=== PATIENT | male | born 1985 | race Caucasian/White ===

== ENCOUNTER 2016-04-07 16:39 | Emergency (ER) | payer OTHER ==
--- NOTE | 2016-04-07 17:43 | ED ORDER SUMMARY ---
..... Patient: JOSE MANUEL GUNTER OrderSheet [facility] VisitID: [id number] [address] [place] [address] 30y, M Registration Date/Time: 04/07/2016 ORDER SHEET Weight: 82.5 kg Allergies: No Known Drug Allergy GENERAL ORDERS: Rapid Influenza Screen (Nasal Pharyngeal) (clear) Urgent (17:14 04/07/2016 West per protocol) (Ack 17:23 LTapper) (17:45 MWinterer R.N.) MEDICATION ORDERS: Hydrocodone-APAP PO 5/325 mg (NOW, HIGH ALERT MEDICATION) (17:21 04/07/2016 Anival JOHANSEN) (Cancelled: Patient [id number] West) Zofran ODT PO 4 mg (NOW) (17:21 04/07/2016 Anival JOHANSEN) (17:32 West) - (Tamiflu 75 mg po) (17:55 04/07/2016 Anival JOHANSEN) (18:03 West) IV FLUIDS: ORDER SHEET NOTES: [Electronically signed by Carla Hernandez (18:04 04/07/2016)] [Electronically signed by Dorian Soriano DO (08:21 04/08/2016)] [Electronically locked/signed by Carla Hernandze (18:04 04/07/2016)]
--- NOTE | 2016-04-07 17:43 | ED ORDER SUMMARY ---
..... Patient: JOSE MANUEL GUNTER OrderSheet [facility] VisitID: [id number] [address] [place] [address] 30y, M Registration Date/Time: 04/07/2016 ORDER SHEET Weight: 82.5 kg Allergies: No Known Drug Allergy GENERAL ORDERS: Rapid Influenza Screen (Nasal Pharyngeal) (clear) Urgent (17:14 04/07/2016 West per protocol) (Ack 17:23 LTapper) (17:45 MWinterer R.N.) MEDICATION ORDERS: Hydrocodone-APAP PO 5/325 mg (NOW, HIGH ALERT MEDICATION) (17:21 04/07/2016 Anival JOHANSEN) (Cancelled: Patient [id number] [place]) Zofran ODT PO 4 mg (NOW) (17:21 04/07/2016 Anival JOHANSEN) (17:32 [place]) - (Tamiflu 75 mg po) (17:55 04/07/2016 Anival JOHANSEN) (18:03 [place]) IV FLUIDS: ORDER SHEET NOTES: [Electronically signed by Carla Hernandez (18:04 04/07/2016)] [Electronically signed by Dorian Soriano DO (08:21 04/08/2016)] [Electronically locked/signed by Carla Hernandez (18:04 04/07/2016)]
--- NOTE | 2016-04-07 17:43 | ED NURSING NOTES ---
Clinical Report - Nurses [facility] [address] [place] [address] 04/07/2016 16:43 Patient: JOSE MANUEL GUNTER TRIAGE Triage time 1650. Acuity: LEVEL 4. Chief Complaint: "FLU", FEVER, COUGH, SORE THROAT and BODY ACHES. Alert. No acute distress. --16:58 Carla Hernandez 16:56 04/07/16. BP: 146/73. HR: 81. RR: 16. O2 saturation: 99%. Temp: 99.6 F. Pain level now 8/10. --16:58 Carla Hernandez. Weight: 82.5 kg. Height/Length: 68 inches. BMI: 27.7. --16:56 Carla Hernandez. Medications None. --16:56 Carla Hernandez. Allergies No Known Drug Allergy. --16:57 Carla Hernandez. History Arrived by private vehicle. Historian: family. Accompanied by family. This started yesterday. Treatment HOUSE DIRECTOR: None. SOCIAL HX: Heavy tobacco smoker (cigarette)- 1 pack per day. Occasional alcohol use. --16:58 Carla Hernandez. Interventions ID band on patient. To treatment room. --16:58 Carla Hernandez. PHYSICAL ASSESSMENT Ambulatory to room. GENERAL / NEURO / PSYCH: Alert. Oriented X 4. Appears in no acute distress. HEENT: Pupils equal, round and reactive to light. Mucous membranes are pink. RESPIRATORY: Respirations not labored. Chest nontender. Breath sounds within normal limits. CVS: Normal sinus rhythm noted. Capillary refill less than 2 seconds. Pulses within normal limits. GI / : Abdomen soft and nontender and normal bowel sounds. SKIN: Skin intact. Skin is warm. Normal skin turgor. --16:58 Carla Hernandez. NURSING PROGRESS NOTES 17:32 04/07/2016 Zofran ODT (Ondansetron) PO 4 mg given. Allergies verified and confirmed 5 rights. --17:32 Carla Hernandez 17:42 04/07/16. ( deburr technician Dylon reported pt is influenza A positive. ED MD notified.). --17:42 Rita Ramirez R.N. 18:03 04/07/2016 Tamiflu PO 75 mg given. Allergies verified and confirmed 5 rights. --18:03 Carla Hernandez. DISPOSITION / DISCHARGE Condition at departure: improved and stable. No learning barriers present. Discharge instructions provided and reviewed with the patient. Reviewed medication(s). Patient verbalized understanding. Written instructions provided in Surinamese. The patient was discharged by the physician. He was discharged home and accompanied by pilot supervisor. He left the Emergency Department ambulatory and via private vehicle. Patient Safety Tech driving. --18:04 Caral Hernandez 18:03 04/07/16. BP: 147/66. HR: 87. RR: 16. O2 saturation: 97%. --18:04 Carla Hernandez Departure time: 1800. --18:04 Carla Hernandez. Locked/Released at 04/07/2016 18:04 by Carla Hernandez,
--- NOTE | 2016-04-07 17:43 | ED NURSING NOTES ---
Clinical Report - Nurses [facility] [address] [place] [address] 04/07/2016 16:43 Patient: JOSE MANUEL GUNTER TRIAGE Triage time 1650. Acuity: LEVEL 4. Chief Complaint: "FLU", FEVER, COUGH, SORE THROAT and BODY ACHES. Alert. No acute distress. --16:58 Carla Hernandez 16:56 04/07/16. BP: 146/73. HR: 81. RR: 16. O2 saturation: 99%. Temp: 99.6 F. Pain level now 8/10. --16:58 Carla Hernandez. Weight: 82.5 kg. Height/Length: 68 inches. BMI: 27.7. --16:56 Carla Hernandez. Medications None. --16:56 Carla Hernandez. Allergies No Known Drug Allergy. --16:57 Carla Hernandez. History Arrived by private vehicle. Historian: family. Accompanied by family. This started yesterday. Treatment MEDICAL INTERN: None. SOCIAL HX: Heavy tobacco smoker (cigarette)- 1 pack per day. Occasional alcohol use. --16:58 Carla Hernandez. Interventions ID band on patient. To treatment room. --16:58 Carla Hernandez. PHYSICAL ASSESSMENT Ambulatory to room. GENERAL / NEURO / PSYCH: Alert. Oriented X 4. Appears in no acute distress. HEENT: Pupils equal, round and reactive to light. Mucous membranes are pink. RESPIRATORY: Respirations not labored. Chest nontender. Breath sounds within normal limits. CVS: Normal sinus rhythm noted. Capillary refill less than 2 seconds. Pulses within normal limits. GI / : Abdomen soft and nontender and normal bowel sounds. SKIN: Skin intact. Skin is warm. Normal skin turgor. --16:58 Carla Hernandez. NURSING PROGRESS NOTES 17:32 04/07/2016 Zofran ODT (Ondansetron) PO 4 mg given. Allergies verified and confirmed 5 rights. --17:32 Carla Hernandez 17:42 04/07/16. ( aerospace physiological technician Dylon reported pt is influenza A positive. ED MD notified.). --17:42 Rita Ramirez R.N. 18:03 04/07/2016 Tamiflu PO 75 mg given. Allergies verified and confirmed 5 rights. --18:03 Carla Hernandez. DISPOSITION / DISCHARGE Condition at departure: improved and stable. No learning barriers present. Discharge instructions provided and reviewed with the patient. Reviewed medication(s). Patient verbalized understanding. Written instructions provided in Niuean. The patient was discharged by the physician. He was discharged home and accompanied by line painting machine operator. He left the Emergency Department ambulatory and via private vehicle. J2Ee Consultant driving. --18:04 Carla Hernandez 18:03 04/07/16. BP: 147/66. HR: 87. RR: 16. O2 saturation: 97%. --18:04 Carla Hernandez Departure time: 1800. --18:04 Carla Hernandez. Locked/Released at 04/07/2016 18:04 by Carla Hernandez,
--- NOTE | 2016-04-07 17:43 | ED CLINICAL REPORT ---
Clinical Report - Physicians/Mid Levels [facility] [address] [place] [address] 04/07/2016 16:43 Patient: JOSE MANUEL GUNTER Time Seen: 16:47. Arrived- By private vehicle. Historian- patient. HISTORY OF PRESENT ILLNESS Chief Complaint: FEVER, MUSCLE ACHES, NASAL CONGESTION, RUNNY NOSE, SORE THROAT, BACK PAIN and HEADACHE. At its maximum, severity described as moderate. When seen in the E.D., severity described as moderate. Modifying factors- worsened by movement and walking. Relieved by rest. This started yesterday and is still present. It was gradual in onset and has been waxing/waning. The patient has had fatigue and muscle aches involving the back. Similar symptoms previously: Recent medical care: Not recently seen/assessed. REVIEW OF SYSTEMS The patient has had sinus drainage, nasal congestion and fever. He has had a sore throat, cough and mild headache. The headache has been similar to previous ones. No difficulty breathing, abdominal pain, nausea, vomiting or diarrhea. No black stools, bloody stools, difficulty with urination, skin rash or calf pain. He has had moderate lower back pain. No difficulty with ambulation. All systems otherwise negative, except as recorded above. PAST HISTORY Negative. See nurses notes. Problems: no known problems. Medications: None. Allergies: No Known Drug Allergy. SOCIAL HISTORY Smoker- current status unknown. Occasional alcohol use. ADDITIONAL NOTES The nursing notes have been reviewed. PHYSICAL EXAM Vital Signs: 04/07/2016 16:56 BP: 146/73. HR: 81. RR: 16. O2 saturation: 99%. Temp: 99.6 F. Appearance: Alert. Patient in moderate distress. Eyes: Eyes normal inspection. No scleral icterus or pale conjunctivae. ENT: No pharyngeal erythema or tonsillar exudate. The mucous membranes are not dry. Neck: Normal inspection. Neck supple. No meningeal signs. CVS: Normal heart rate and rhythm. Heart sounds normal. Pulses normal. Respiratory: No respiratory distress. Breath sounds normal. Abdomen: No visible injury. Soft and nontender. No mass. Back: Normal inspection. Moderate soft-tissue tenderness in the right mid lumbar area. No CVA tenderness or vertebral point tenderness. Skin: Skin warm and dry. Normal skin color. No rash. Normal skin turgor. Extremities: Extremities exhibit normal ROM. No calf tenderness. No lower extremity edema. Neuro: Oriented X 3. No motor deficit. LABS, X-RAYS, AND EKG Laboratory Tests: Rapid Influenza Screen: (ANGIE: 04/07/2016 16:50) ( [id number] 04/07/2016 17:42) Final results SPECIMEN DESCRIPTION: CLEAR Test Result Flag Units (Reference) RAPID INFLUENZA SCREEN CALLED TO: Emily NEVAREZ -- DATE: 04/07/16 INFLUENZA A: POSITIVE SCREEN FOR INFLUENZA A INFLUENZA B: NEGATIVE SCREEN FOR INFLUENZA B RAPID INFLUENZA "A" POSITIVE. . Pulse Oximetry: 04/07/2016 16:56 O2 saturation: 99%. (FIO2 - room air). Interpretation: normal. PROGRESS AND PROCEDURES Course of Care: Tamiflu 75mg PO given. Hydrocodone/APAP 5 mg PO given. Zofran 4 mg ODT PO given. Patient is stable. Physical exam findings are improved. Symptoms much better. Patient/family counseled. Disposition: Discharged. Condition: stable and improved. CLINICAL IMPRESSION Influenza type A with upper respiratory infection and pharyngitis. INSTRUCTIONS Rest. Do not work for three days. Drink plenty of fluids. Warnings: Further evaluation is necessary in order to recheck abnormal lab, obtain test results and conduct further tests. It is very important to follow up with a physician. SEDATIVE MEDICATION: You were given sedative medication during your visit. Do not drive or operate dangerous machinery. CONTROLLED SUBSTANCE WARNINGS. GENERAL WARNINGS: Return or contact your physician immediately if your condition worsens or changes unexpectedly, if not improving as expected, or if other problems arise. Prescription Medications: Hydrocodone/APAP 5mg / 325mg: take 1-2 orally every 8 hours as needed for pain. Dispense ten (10). No refill. Tamiflu 75 mg: take 1 capsule orally every 12 hours for 5 days. Dispense ten (10). No refills. Substitution is permissible. OTC Medications: Acetaminophen (available over the counter): take according to label instructions. Motrin (available over the counter): take according to label instructions. Follow-up: Follow up with your doctor in about three days. (Electronically signed by Dorian Soriano DO 04/08/2016 8:21)
--- NOTE | 2016-04-08 08:21 | ED DISCHARGE INSTRUCTIONS ---
Patient: JOSE MANUEL GUNTER General Instructions Located Within [facility] VisitID: [id number] [place] [address] 30y, M Registration Date/Time: 04/07/2016 Influenza type A with upper respiratory infection and pharyngitis. INSTRUCTIONS Rest. Do not work for three days. Drink plenty of fluids. Warnings: Further evaluation is necessary in order to recheck abnormal lab, obtain test results and conduct further tests. It is very important to follow up with a physician. SEDATIVE MEDICATION: You were given sedative medication during your visit. Do not drive or operate dangerous machinery. CONTROLLED SUBSTANCE WARNINGS. GENERAL WARNINGS: Return or contact your physician immediately if your condition worsens or changes unexpectedly, if not improving as expected, or if other problems arise. Prescription Medications: Hydrocodone/APAP 5mg / 325mg: take 1-2 orally every 8 hours as needed for pain. Dispense ten (10). No refill. Tamiflu 75 mg: take 1 capsule orally every 12 hours for 5 days. Dispense ten (10). No refills. Substitution is permissible. OTC Medications: Acetaminophen (available over the counter): take according to label instructions. Motrin (available over the counter): take according to label instructions. Follow-up: Follow up with your doctor in about three days. ADDITIONAL INFORMATION Influenza (Adult) Influenza, also called the flu, is a viral illness that affects the air passages of the lungs. It differs from the common cold. It is highly contagious. It may be spread through the air by coughing and sneezing or by direct contact (touching the sick person and then touching your own eyes, nose or mouth). Illness starts 1-3 days after exposure and lasts for 1-2 weeks. Antibiotics are usually not needed unless a complication appears (ear or sinus infection or pneumonia). Symptoms may be mild or severe and can include extreme tiredness (wanting to stay in bed all day), chills, fevers, muscle aching, soreness with eye movement, headache, and a dry, hacking cough. Home Care: Avoid exposure to cigarette smoke (yours or others). Tylenol or ibuprofen (Advil) will help fever, muscle aching, and headache. To avoid risk of liver injury, aspirin should not be used in children and teenagers under 18 with this illness. Nausea and loss of appetite are common. A light diet is recommended. Avoid dehydration by drinking 6-8 glasses of fluids per day (water, sport drinks like Gatorade, soft drinks without caffeine, juices, tea, soup, etc.). Extra fluids will also help loosen secretions in the nose and lungs. [id number]-[id number] cold medicines will not shorten the duration of the illness but may be helpful for the following symptoms: cough (Robitussin DM); sore throat (Chloraseptic lozenges or spray); nasal and sinus congestion (Actifed or Sudafed). [NOTE: Do not use decongestants if you have high blood pressure.] Stay home until your fever has been gone for at least 24 hours (without the use of fever-reducing medications such as ibuprofen). Follow Up with your doctor or as directed by our staff if you are not improving over the next week. Note: If you are age 65 or older, or if you have chronic asthma or COPD, we recommend a pneumococcal vaccinationevery five years. All adults shouldreceive a yearly influenza vaccination every . Ask your doctor about this. Get Prompt Medical Attention if any of the following occur: Cough with lots of colored sputum (mucus) or blood in your sputum Chest pain, shortness of breath, wheezing, or difficulty breathing Severe headache, face, neck or ear pain New rash Fever of 100.4F (38C) oral or higher, not better with fever medication Confusion, behavior change or seizure Severe weakness or dizziness Hydrocodone Bitartrate, Acetaminophen Oral tablet What is this medicine? ACETAMINOPHEN; HYDROCODONE (a set a ADRIAN jaswinder fen; lainey droe KOE done) is a pain reliever. It is used to treat mild to moderate pain. How should I use this medicine? Take this medicine by mouth. Swallow it with a full glass of water. Follow the directions on the prescription label. If the medicine upsets your stomach, take the medicine with food or milk. Do not take more than you are told to take. Talk to your ecommerce merchandising manager regarding the use of this medicine in children. This medicine is not approved for use in children. What side effects may I notice from receiving this medicine? Side effects that you should report to your doctor or health managed care manager as soon as possible: allergic reactions like skin rash, itching or hives, swelling of the face, lips, or tongue breathing problems confusion feeling faint or lightheaded, falls stomach pain yellowing of the eyes or skin Side effects that usually do not require medical attention (report to your doctor or health managed care manager if they continue or are bothersome): nausea, vomiting stomach upset What may interact with this medicine? alcohol antihistamines isoniazid medicines for depression, anxiety, or psychotic disturbances medicines for sleep muscle relaxants naltrexone narcotic medicines (opiates) for pain phenobarbital ritonavir tramadol What if I miss a dose? If you miss a dose, take it as soon as you can. If it is almost time for your next dose, take only that dose. Do not take double or extra doses. Where should I keep my medicine? Keep out of the reach of children. This medicine can be abused. Keep your medicine in a safe place to protect it from theft. Do not share this medicine with anyone. Selling or giving away this medicine is dangerous and against the law. Store at room temperature between 15 and 30 degrees C (59 and 86 degrees F). Protect from light. Keep container tightly closed. Throw away any unused medicine after the expiration date. Discard unused medicine and used packaging carefully. Pets and children can be harmed if they find used or lost packages. What should I tell my health care provider before I take this medicine? They need to know if you have any of these conditions: brain tumor Crohn's disease, inflammatory bowel disease, or ulcerative colitis drink more than 3 alcohol-containing drinks per day drug abuse or addiction head injury heart or circulation problems kidney disease or problems going to the bathroom liver disease lung disease, asthma, or breathing problems an unusual or allergic reaction to acetaminophen, hydrocodone, other opioid analgesics, other medicines, foods, dyes, or preservatives or trying to get breast-feeding What should I watch for while using this medicine? Tell your doctor or health managed care manager if your pain does not go away, if it gets worse, or if you have new or a different type of pain. You may develop tolerance to the medicine. Tolerance means that you will need a higher dose of the medicine for pain relief. Tolerance is normal and is expected if you take the medicine for a long time. Do not suddenly stop taking your medicine because you may develop a severe reaction. Your body becomes used to the medicine. This does NOT mean you are addicted. Addiction is a behavior related to getting and using a drug for a non-medical reason. If you have pain, you have a medical reason to take pain medicine. Your doctor will tell you how much medicine to take. If your doctor wants you to stop the medicine, the dose will be slowly lowered over time to avoid any side effects. You may get drowsy or dizzy when you first start taking the medicine or change doses. Do not drive, use machinery, or do anything that may be dangerous until you know how the medicine affects you. Stand or sit up slowly. There are different types of narcotic medicines (opiates) for pain. If you take more than one type at the same time, you may have more side effects. Give your health care provider a list of all medicines you use. Your doctor will tell you how much medicine to take. Do not take more medicine than directed. Call emergency for help if you have problems breathing. The medicine will cause constipation. Try to have a bowel movement at least every 2 to 3 days. If you do not have a bowel movement for 3 days, call your doctor or health managed care manager. Too much acetaminophen can be very dangerous. Do not take Tylenol (acetaminophen) or medicines that contain acetaminophen with this medicine. Many non-prescription medicines contain acetaminophen. Always read the labels carefully. Oseltamivir Phosphate Oral capsule What is this medicine? OSELTAMIVIR (os el WILBURN i vir) is an antiviral medicine. It is used to prevent and to treat some kinds of influenza or the flu. It will not work for colds or other viral infections. How should I use this medicine? Take this medicine by mouth with a glass of water. Follow the directions on the prescription label. Start this medicine at the first sign of flu symptoms. You can take it with or without food. If it upsets your stomach, take it with food. Take your medicine at regular intervals. Do not take your medicine more often than directed. Take all of your medicine as directed even if you think you are better. Do not skip doses or stop your medicine early. Talk to your ecommerce merchandising manager regarding the use of this medicine in children. While this drug may be prescribed for children as young as 14 days for selected conditions, precautions do apply. What side effects may I notice from receiving this medicine? Side effects that you should report to your doctor or health managed care manager as soon as possible: allergic reactions like skin rash, itching or hives, swelling of the face, lips, or tongue anxiety, confusion, unusual behavior breathing problems hallucination, loss of contact with reality redness, blistering, peeling or loosening of the skin, including inside the mouth seizures Side effects that usually do not require medical attention (report to your doctor or health managed care manager if they continue or are bothersome): cough diarrhea dizziness headache nausea, vomiting stomach pain What may interact with this medicine? Interactions are not expected. What if I miss a dose? If you miss a dose, take it as soon as you remember. If it is almost time for your next dose (within 2 hours), take only that dose. Do not take double or extra doses. Where should I keep my medicine? Keep out of the reach of children. Store at room temperature between 15 and 30 degrees C (59 and 86 degrees F). Throw away any unused medicine after the expiration date. What should I tell my health care provider before I take this medicine? They need to know if you have any of the following conditions: heart disease immune system problems kidney disease liver disease lung disease an unusual or allergic reaction to oseltamivir, other medicines, foods, dyes, or preservatives or trying to get breast-feeding What should I watch for while using this medicine? Visit your doctor or health managed care manager for regular check ups. Tell your doctor if your symptoms do not start to get better or if they get worse. If you have the flu, you may be at an increased risk of developing seizures, confusion, or abnormal behavior. This occurs early in the illness, and more frequently in children and teens. These events are not common, but may result in accidental injury to the patient. Families and caregivers of patients should watch for signs of unusual behavior and contact a doctor or health managed care manager right away if the patient shows signs of unusual behavior. This medicine is not a substitute for the flu shot. Talk to your doctor each year about an annual flu shot. Acetaminophen Oral tablet What is this medicine? ACETAMINOPHEN (a set a ADRIAN jaswinder fen) is a pain reliever. It is used to treat mild pain and fever. How should I use this medicine? Take this medicine by mouth with a glass of water. Follow the directions on the package or prescription label. Take your medicine at regular intervals. Do not take your medicine more often than directed. Talk to your ecommerce merchandising manager regarding the use of this medicine in children. While this drug may be prescribed for children as young as 6 years of age for selected conditions, precautions do apply. What side effects may I notice from receiving this medicine? Side effects that you should report to your doctor or health managed care manager as soon as possible: allergic reactions like skin rash, itching or hives, swelling of the face, lips, or tongue breathing problems fever or sore throat redness, blistering, peeling or loosening of the skin, including inside the mouth trouble passing urine or change in the amount of urine unusual bleeding or bruising unusually weak or tired yellowing of the eyes or skin Side effects that usually do not require medical attention (report to your doctor or health managed care manager if they continue or are bothersome): headache nausea, stomach upset What may interact with this medicine? alcohol imatinib isoniazid other medicines with acetaminophen What if I miss a dose? If you miss a dose, take it as soon as you can. If it is almost time for your next dose, take only that dose. Do not take double or extra doses. Where should I keep my medicine? Keep out of reach of children. Store at room temperature between 20 and 25 degrees C (68 and 77 degrees F). Protect from moisture and heat. Throw away any unused medicine after the expiration date. What should I tell my health care provider before I take this medicine? They need to know if you have any of these conditions: if you frequently drink alcohol containing drinks liver disease an unusual or allergic reaction to acetaminophen, other medicines, foods, dyes or preservatives or trying to get breast-feeding What should I watch for while using this medicine? Tell your doctor or health managed care manager if the pain lasts more than 10 days (5 days for children), if it gets worse, or if there is a new or different kind of pain. Also, check with your doctor if a fever lasts for more than 3 days. Do not take other medicines that contain acetaminophen with this medicine. Always read labels carefully. If you have questions, ask your doctor or pharmacist. If you take too much acetaminophen get medical help right away. Too much acetaminophen can be very dangerous and cause liver damage. Even if you do not have symptoms, it is important to get help right away. Ibuprofen Oral tablet What is this medicine? IBUPROFEN (eye BYOO proe fen) is a non-steroidal anti-inflammatory drug (NSAID). It is used for dental pain, fever, headaches or migraines, osteoarthritis, rheumatoid arthritis, or painful monthly periods. It can also relieve minor aches and pains caused by a cold, flu, or sore throat. How should I use this medicine? Take this medicine by mouth with a glass of water. Follow the directions on the prescription label. Take this medicine with food if your stomach gets upset. Try to not lie down for at least 10 minutes after you take the medicine. Take your medicine at regular intervals. Do not take your medicine more often than directed. A special MedGuide will be given to you by the pharmacist with each prescription and refill. Be sure to read this information carefully each time. Talk to your ecommerce merchandising manager regarding the use of this medicine in children. Special care may be needed. What side effects may I notice from receiving this medicine? Side effects that you should report to your doctor or health managed care manager as soon as possible: allergic reactions like skin rash, itching or hives, swelling of the face, lips, or tongue black or bloody stools, blood in the urine or in vomit breathing problems changes in vision chest pain general ill feeling or flu-like symptoms nausea or vomiting redness, blistering, peeling or loosening of the skin, including inside the mouth slurred speech or weakness on one side of the body stomach pain unexplained weight gain or swelling unusually weak or tired yellowing of eyes or skin Side effects that usually do not require medical attention (report to your doctor or health managed care manager if they continue or are bothersome): constipation or diarrhea dizziness gas or heartburn stomach upset What may interact with this medicine? Do not take this medicine with any of the following medications: cidofovir ketorolac methotrexate pemetrexed This medicine may also interact with the following medications: alcohol aspirin diuretics lithium other drugs for inflammation like prednisone warfarin What if I miss a dose? If you miss a dose, take it as soon as you can. If it is almost time for your next dose, take only that dose. Do not take double or extra doses. Where should I keep my medicine? Keep out of the reach of children. Store at room temperature between 15 and 30 degrees C (59 and 86 degrees F). Keep container tightly closed. Throw away any unused medicine after the expiration date. What should I tell my health care provider before I take this medicine? They need to know if you have any of these conditions: asthma cigarette smoker drink more than 3 alcohol containing drinks a day heart disease or circulation problems such as heart failure or leg edema (fluid retention) high blood pressure kidney disease liver disease stomach bleeding or ulcers an unusual or allergic reaction to ibuprofen, aspirin, other NSAIDS, other medicines, foods, dyes, or preservatives or trying to get breast-feeding What should I watch for while using this medicine? Tell your doctor or healthcare professional if your symptoms do not start to get better or if they get worse. This medicine does not prevent heart attack or stroke. In fact, this medicine may increase the chance of a heart attack or stroke. The chance may increase with longer use of this medicine and in people who have heart disease. If you take aspirin to prevent heart attack or stroke, talk with your doctor or health managed care manager. Do not take other medicines that contain aspirin, ibuprofen, or naproxen with this medicine. Side effects such as stomach upset, nausea, or ulcers may be more likely to occur. Many medicines available without a prescription should not be taken with this medicine. This medicine can cause ulcers and bleeding in the stomach and intestines at any time during treatment. Ulcers and bleeding can happen without warning symptoms and can cause . To reduce your risk, do not smoke cigarettes or drink alcohol while you are taking this medicine. You may get drowsy or dizzy. Do not drive, use machinery, or do anything that needs mental alertness until you know how this medicine affects you. Do not stand or sit up quickly, especially if you are an older patient. This reduces the risk of dizzy or fainting spells. This medicine can cause you to bleed more easily. Try to avoid damage to your teeth and gums when you brush or floss your teeth. You have been given the following additional information: Influenza (Adult) Hydrocodone Bitartrate, Acetaminophen Oral tablet Oseltamivir Phosphate Oral capsule Acetaminophen Oral tablet Ibuprofen Oral tablet Rest. Do not work for three days. (Electronically signed by Dorian Soriano DO 04/08/2016 8:21)
--- NOTE | 2016-04-08 08:21 | ED MAR SUMMARY ---
..... Medication Administration Record [facility] [address] [place] [address] Patient: JOSE AMNUEL GUNTER Visit ID: [id number] 30y, M Weight: 82.5 kg Height/Length: 68 in BMI: 27.7 ALLERGIES: No Known Drug Allergy Given 17:32 04/07/2016 Carla Hernandez, Medication Administered: ZOFRAN ODT [PO] (ONDANSETRON), Dose: 4 mg PO. Medication Ordered: Zofran ODT PO 4 mg (NOW). Given 18:03 04/07/2016 Carla Hernandez, Medication Administered: TAMIFLU [PO], Dose: 75 mg PO. Medication Ordered: - (Tamiflu 75 mg po).
--- NOTE | 2016-04-08 08:21 | ED MED RECONCILIATION SUMMARY ---
Patient: JOSE MANUEL GUNTER Medication Reconciliation Report [facility] VisitID: [id number] [address] [place] [address] 30y, M Registration Date/Time: 04/07/2016 Weight: 82.5 kg Height/Length: 68 in. BMI: 27.7 ALLERGIES: No Known Drug Allergy The patient's Home Medications are listed below: NONE. The source(s) of the original Home Medication information: Not obtained. The following Medications were given to the patient in the Emergency Department: Zofran ODT [PO] PO 4 mg, administered: 04/07/2016 5:32:00 PM Tamiflu [PO] PO 75 mg, administered: 04/07/2016 6:03:00 PM The following Medications were prescribed to the patient: Acetaminophen (available over the counter): take according to label instructions. -- Dorian Soriano DO Motrin (available over the counter): take according to label instructions. -- Dorian Soriano DO Hydrocodone/APAP 5mg / 325mg: take 1-2 orally every 8 hours as needed for pain. Dispense ten (10). No refill. -- Dorian Soriano DO Tamiflu 75 mg: take 1 capsule orally every 12 hours for 5 days. Dispense ten (10). No refills. Substitution is permissible. -- Dorian Soriano DO
--- NOTE | 2016-04-08 08:21 | ED MAR SUMMARY ---
..... Medication Administration Record [facility] [address] [place] [address] Patient: JOSE MANUEL GUNTER Visit ID: [id number] 30y, M Weight: 82.5 kg Height/Length: 68 in BMI: 27.7 ALLERGIES: No Known Drug Allergy Given 17:32 04/07/2016 Carla Hernandez, Medication Administered: ZOFRAN ODT [PO] (ONDANSETRON), Dose: 4 mg PO. Medication Ordered: Zofran ODT PO 4 mg (NOW). Given 18:03 04/07/2016 Carla Hernandez, Medication Administered: TAMIFLU [PO], Dose: 75 mg PO. Medication Ordered: - (Tamiflu 75 mg po).
--- NOTE | 2016-04-08 08:21 | ED MED RECONCILIATION SUMMARY ---
Patient: JOSE MANUEL GUNTER Medication Reconciliation Report [facility] VisitID: [id number] [address] [place] [address] 30y, M Registration Date/Time: 04/07/2016 Weight: 82.5 kg Height/Length: 68 in. BMI: 27.7 ALLERGIES: No Known Drug Allergy The patient's Home Medications are listed below: NONE. The source(s) of the original Home Medication information: Not obtained. The following Medications were given to the patient in the Emergency Department: Zofran ODT [PO] PO 4 mg, administered: 04/07/2016 5:32:00 PM Tamiflu [PO] PO 75 mg, administered: 04/07/2016 6:03:00 PM The following Medications were prescribed to the patient: Acetaminophen (available over the counter): take according to label instructions. -- Dorian Soriano DO Motrin (available over the counter): take according to label instructions. -- Dorian Soriano DO Hydrocodone/APAP 5mg / 325mg: take 1-2 orally every 8 hours as needed for pain. Dispense ten (10). No refill. -- Dorian Soriano DO Tamiflu 75 mg: take 1 capsule orally every 12 hours for 5 days. Dispense ten (10). No refills. Substitution is permissible. -- Dorian Soriano DO
== END 2016-04-07 18:00 | disposition home or self-care (01) ==
LOC: ED SRH 16:39
DX: J10.1 Influenza due to other identified influenza virus with other respiratory manifestations (principal); F17.210 Nicotine dependence, cigarettes, uncomplicated
CPT/HCPCS: 91400